=== PATIENT | male | born 1955 | race Caucasian/White ===

== ENCOUNTER 2020-10-13 09:27 | Emergency (ER) | payer OTHER ==
[~2020-10-13 09:27] MED LIST: NORCO 5-325 TA1 EACH PO
[2020-10-13 09:51] LABS: BASOPHIL 0.3 % (0-2); EOSINOPHIL 0.2 % (0-7); HCT 46.5 % (42.0-52.0); HGB 14.8 g/dl (13.2-18.0); LYMPHOCYTE 23.9 % (15-48); MCH 30.2 pg (25.0-31.0); MCHC 31.8 g/dL (32.0-36.0); MCV 94.9 fL (78.0-100.0); MONOCYTE 11.3 % (0-12); MPV 9.7 fL (6.0-9.5); NEUTROPHIL 63.8 % (41-80); NRBC 0; PLT 239 K/uL (150-400); RDW 13.8 % (11.5-14.0); WBC 12.8 K/uL (4.0-10.5)
[2020-10-13 10:07] LABS: INR 1.08 (0.9-1.2); PROTHROMBIN TIME 13.3 SECONDS (11.4-13.6); PTT 27.2 SECONDS (22.2-34.7)
[2020-10-13 10:11] LABS: ALBUMIN 3.6 g/dL (3.4-5.0); BILIRUBIN - TOTAL 0.9 mg/dL (0.2-1.0); CREATININE 1.64 mg/dL (0.67-1.17); GLOBULIN (CALCULATION) 3.3 g/dL; POTASSIUM 4.5 mmol/L (3.5-5.1); TOTAL PROTEIN 6.9 g/dL (6.4-8.2)
== END 2020-10-13 15:40 | disposition other institution (70) ==
LOC: FER 09:27
PROVIDERS: Emergency Medicine
DX: I21.4 Non-ST elevation (NSTEMI) myocardial infarction (principal); I71.4 Abdominal aortic aneurysm, without rupture; R00.1 Bradycardia, unspecified; I25.2 Old myocardial infarction; I25.10 Atherosclerotic heart disease of native coronary artery without angina pectoris; F17.200 Nicotine dependence, unspecified, uncomplicated; Z95.5 Presence of coronary angioplasty implant and graft; Z20.822 Contact with and (suspected) exposure to COVID-19
CPT/HCPCS: 36415; 71045; 71275; 80053; 83880; 84484; 85025; 85610; 85730; 93005; J1644; J7030; Q9967; U0002